=== PATIENT | male | born 1935 | race Caucasian/White ===

== ENCOUNTER 2020-09-18 10:09 | Emergency (ER) | payer MEDICARE, SELFPAY ==
--- NOTE | ~2020-09-18 | XR_ITS ---
EXAMINATION: XR chest 2V DATE: 09/18/2020 11:03 INDICATION: Cough. COVID-19 pneumonia. TECHNIQUE: Frontal and lateral views of the chest were obtained. COMPARISON: Chest CT 01/03/2019 FINDINGS: There is a 5 cm mass in perihilar right lower lobe. There are patchy airspace opacities in the mid and lower lung zones. No pleural effusion or pneumothorax. The heart size is normal. Calcifie d mediastinal lymph nodes are consistent with old granulomatous disease. IMPRESSION: 1. 5 cm mass in perihilar right lower lobe suspicious for primary bronchogenic carcinoma. Chest CT is recommended. 2. Patchy airspace opacities in the mid and lower lung zones, consistent with COVID-19 pneumonia. Reviewed, dictated and finalized at location A. TECHNICIAN IMPRESSION: 1. 5 cm mass in perihilar right lower lobe suspicious for primary bronchogenic carcinoma. Chest CT is recommended. 2. Patchy airspace opacities in the mid and lower lung zones, consistent with C OVID-19 pneumonia.
[2020-09-18 10:34] VITALS: BP 118/102; PULSE 63; RESP 20; TEMP 36.5; O2SAT 94
--- NOTE | 2020-09-18 10:53 | ED.URI ---
HPI - URI/Sore Throat General Chief Complaint: Upper Respiratory Infection Stated Complaint: upper respiratory infection Time Seen by Provider: 09/18/20 10:40 Source: patient and RN notes reviewed Mode of arrival: ambulatory Limitations: no limitations History of Present Illness HPI Narrative: Patient presents today complaining of a 1 week history of productive cough with occasional fever with T-max of 101, decreased appetite with decreased taste. Reports rhinorrhea initially, but this has resolved. Denies shortness of breath, body aches, sore throat, congestion, nausea, vomiting, diarrhea, decreased smell. He has taken allergy medication, Tylenol, and ibuprofen. States ibuprofen helps the fever. States he has also been using a nebulizer machine and inhaler at home, which does help with his symptoms as well. MD elicited complaint: cough Related Data Home Medications Medication Instructions Recorded Confirmed allopurinol 100 mg tablet 100 mg PO DAILY 01/16/20 09/18/20 gabapentin 300 mg capsule 300 mg PO DAILY 01/16/20 09/18/20 pantoprazole 40 mg tablet,delayed 40 mg PO QAM 01/16/20 09/18/20 release prednisolone 5 mg tablet 5 mg PO DAILY 01/16/20 09/18/20 simvastatin 20 mg tablet 20 mg PO DAILY 01/16/20 09/18/20 Allergies Allergy/AdvReac Type Severity Reaction Status Date / Time No Known Allergies Allergy Verified 01/16/20 08:14 Review of Systems Review of Systems: Narrative: CONSTITUTIONAL: Denies body aches, chills, or sweats. + Fever EYES: Denies visual changes, redness, or discharge. ENT: Denies congestion, sore throat, or otalgia. + Rhinorrhea?resolved CARDIOVASCULAR: Denies chest pain, palpitations, or edema. RESPIRATORY: Denies dyspnea. + Cough GASTROINTESTINAL: Denies abdominal pain, nausea, vomiting, or diarrhea. + Decreased appetite, decreased taste GENITOURINARY: Denies dysuria or hematuria. SKIN: Denies rash, itching, or wounds. MUSCULOSKELETAL: Denies back pain, joint pain, or myalgia. NEUROLOGIC: Denies headache, numbness, tingling, or weakness. PSYCH: Denies depression or anxiety. [facility] Past Medical History Medical History (Updated 09/18/20 @ 11:35 by Em Lee, [facility], ) Chronic bronchitis GERD (gastroesophageal reflux disease) Gout High cholesterol Surgical History Surgical History History of bilateral knee replacement 2001 History of neck surgery metal plate in neck 2007 History of surgery on arm Metal plate in arm 1997 Family History Family History Other Family history of arthritis Family history of malignant neoplasm Social History Social History Smoking status: Current every day smoker Gender identity (if verbalized by the patient): Male Comments At time of signature, I have reviewed and agree with nursing past medical, surgical, social and family history unless otherwise noted. Please see nursing chart for further information. There is no relevant family history pertinent to the presenting complaint Exam Narrative: Exam Narrative: GENERAL: Well-appearing, well-nourished, and in no acute distress. HEAD: Normocephalic, atraumatic. EYES: EOMI. No redness or drainage. Conjunctivae normal. ENT: Mucous membranes pink and moist. Nares clear. No rhinorrhea. Throat normal. Uvula midline. Wears bilateral hearing aids NECK: Normal AROM. Supple. No lymphadenopathy. CHEST: No respiratory distress. Crackles in the right lower lobe, otherwise clear HEART: Regular rate and rhythm. No murmur appreciated. Normal peripheral pulses. EXTREMITIES: Normal range of motion. No edema. SKIN: Warm, dry, no rash. Capillary refill normal. Normal skin turgor. NEURO: No focal deficits. Alert and oriented x3. Gait steady. PSYCH: Normal affect. No signs of depression or anxiety. Course Vital
== END 2020-09-18 11:43 | disposition home or self-care (01) ==
PROVIDERS: Emergency Provider Nurse Practitioner; PCP Family Medicine
DX: U07.1 COVID-19 (principal); J12.82 Pneumonia due to coronavirus disease 2019; R91.8 Other nonspecific abnormal finding of lung field; F17.200 Nicotine dependence, unspecified, uncomplicated; Z96.653 Presence of artificial knee joint, bilateral; K21.9 Gastro-esophageal reflux disease without esophagitis; M10.9 Gout, unspecified; E78.00 Pure hypercholesterolemia, unspecified
CPT/HCPCS: 71046; 87426; 87804; 99213; C9803; G0463

== ENCOUNTER 2020-10-06 10:26 | Outpatient (CLI) | payer MEDICARE, SELFPAY ==
--- NOTE | ~2020-10-06 | CT_ITS ---
EXAMINATION: CT diagnostic chest wo con DATE: 10/06/2020 11:03 INDICATION: Right lower lobe mass TECHNIQUE: Computed tomography (CT) of the chest was performed without intravenous contrast. Automate d exposure control and iterative reconstruction technique were employed. Exam dose: 352.49 mGy-cm to baldemar exam DLP. COMPARISON: 09/18/2020 2 view chest 01/03/2019 CT chest FINDINGS: There is prominent right paratracheal, right hilar and mild subcarinal lymphadenopathy. 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 There are bilateral patchy upper lobe infiltrates, primarily on the right and at the lingula. Patchy infiltrate and/atelectasis of the minor fissure, primarily dependent. Patchy bilateral lower lobe inf iltrates and/or atelectasis. Partially calcified substernal left thyroid goiter. Thoracic aortic and great vessel and coronary artery calcifications. Thoracic aortic aneurysm, the ascending aorta measuring up to 4.4 cm diameter, the aortic arch up to 3.3 cm diameter. Heart size within normal range. Trace pericardial fluid. Normal morphology of the adrenal glands. 2.6 cm concentrically calcified gallstone. Bilateral renal cysts. Fusion of T5 and T6 vertebral bodies. Prominent degenerative spurring of the thoracic and lumbar spin e. No suspicious osteolytic or osteoblastic lesions are noted.. Status post lower anterior cervical spine surgical fusion. Prominent degenerative spurring of the thoracic spine. No suspicious osteolytic or osteoblastic lesions are noted. 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 Reviewed, dictated and finalized at location A. 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
== END 2020-10-06 10:27 | disposition home or self-care (01) ==
PROVIDERS: PCP Family Medicine; Visit Provider Family Medicine
DX: D38.1 Neoplasm of uncertain behavior of trachea, bronchus and lung (principal); R91.8 Other nonspecific abnormal finding of lung field; K80.20 Calculus of gallbladder without cholecystitis without obstruction; N28.1 Cyst of kidney, acquired
CPT/HCPCS: 71250

== ENCOUNTER 2020-10-30 08:59 | Outpatient (CLI) | payer MEDICARE, SELFPAY ==
--- NOTE | ~2020-10-30 | PE_ITS ---
EXAMINATION: PET skull to mid thigh DATE: 10/30/2020 11:42 INDICATION: Lung mass. TECHNIQUE: Blood glucose level was 88 mg/dL. 9.857 mCi of 18-fluorodeoxyglucose (18-FDG) was administ ered i.v. Low dose computed tomography (CT) images were acquired from the base of the brain to the pr oximal thighs for attenuation correction and anatomic localization. Positron emission tomography (PET ) images were acquired in the same distribution beginning 59 minutes after injection. Images includin g fused PET/CT images were reconstructed in axial, coronal, and sagittal planes. Automated exposure c ontrol technique was employed. The dose-length product was 1100.36mGy-cm. COMPARISON: Chest CT dated 10/06/2020 FINDINGS: Head/neck: There is symmetric increased activity in the oral cavity, palatine tonsils, parotid glands, submandi bular glands, laryngeal muscles and ocular muscles without CT correlate, likely physiologic. No patho logically enlarged cervical lymphadenopathy or suspicious foci of increased FDG uptake in the visuali zed head or neck. Chest: 5.4 x 3.8 cm perihilar right lower lobe mass with marked FDG uptake with maximal SUV of 21.8. There i s increased FDG uptake at a right hilar lymph node with maximal SUV of 11.3. The lymph node is diffic ult to distinguish from the adjacent vasculature at the high right hilum but based on pattern of FDG activity likely measures 2-3 cm. Finally there is a 5.5 x 4.1 cm FDG avid right paratracheal lymph no de with maximal SUV of 12.9. 19 x 13 mm mildly FDG avid subcarinal lymph node with maximal SUV of 6.0 . Bilateral patchy regions of groundglass opacity scattered throughout both lungs which could represe nt atelectasis, pneumonia, aspiration or pulmonary hemorrhage. Calcified nodule at the lingula consis tent with old granulomatous disease. No pleural effusion. Cardiomegaly. No pericardial effusion. Athe rosclerotic coronary artery calcific lesions and aortic valve calcification. Thoracic aorta is normal in caliber. Abdomen/pelvis/proximal thighs: Physiologic renal accumulation and excretion of FDG activity in the kidneys, bladder and along portio ns of ureters. Bilateral low-attenuation renal cysts the largest on the left measuring up to 3.6 cm. Normal degree and heterogenous pattern of increased uptake throughout the liver without radiologic co rrelate or dominant FDG avid lesion. Partially calcified gallstone within the decompressed gallbladde r. The pancreas, spleen and bilateral adrenal glands are normal. There is mild colonic diverticulosis with a sigmoid predominance and no adjacent inflammatory change to suggest diverticulitis. Mild upta ke scattered throughout the bowels without radiologic correlate, also likely physiologic. Bilateral s mall fat-containing inguinal hernias. No other abnormal foci of increased FDG uptake or pathologicall y enlarged lymphadenopathy in the abdomen, pelvis or proximal thighs. Musculoskeletal: C5-C6 anterior spinal fusion with anterior plate and screw fixation. Severe thoracolumbar spondylosis with bridging osteophytes at multiple levels consistent with diffuse idiopathic skeletal hyperostosi s (DISH). Mild focal kyphosis centered at T5 and T6 which are fused anteriorly which could be either developmental or sequela of an old compression fracture. 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 No suspicious lytic or blastic bone lesions. IMPRESSION: 1. Markedly FDG avid 5.4 x 3.8 cm right lower lobe mass consistent with primary bronchogenic carcinom a. Consider percutaneous CT-guided biopsy for definitive determination. 2. Enlarged and FDG avid right hilar, subcarinal and most prominently right paratracheal lymph nodes consistent with metastatic disease. No other evident metastatic disease. 3.
[2020-10-30 09:39] LABS: Glucose Point of Care 88 (65-105)
== END 2020-10-30 09:00 | disposition home or self-care (01) ==
PROVIDERS: PCP Family Medicine
DX: R91.8 Other nonspecific abnormal finding of lung field (principal); R59.0 Localized enlarged lymph nodes
CPT/HCPCS: 78815; 82948; A9552

== ENCOUNTER 2021-02-27 07:05 | Outpatient (CLI) | payer MEDICARE, SELFPAY ==
--- NOTE | ~2021-02-27 | CT_ITS ---
EXAMINATION: CT diagnostic chest w con DATE: 02/27/2021 07:54 INDICATION: Lung cancer TECHNIQUE: Computed tomography (CT) of the chest was performed with 75 cc Omnipaque 350 intravenous c ontrast. The dose-length product was 466.29 mGy-cm. Automated exposure control and iterative reconstr uction technique were employed. COMPARISON: Pet/CT dated 10/30/[address] dated 10/06/2020 FINDINGS: Significantly decreased size of right lower lobe mass measuring 2.4 x 2.1 cm compared with 3.5 x 4.7 cm on prior examination. Significant improvement of mediastinal and right hilar lymphadenop athy. For instance right paratracheal lymph node measures 3.3 x 3 cm compared with 5.3 x 4 cm on prio r examination. Heart size is normal. There is patchy multifocal consolidation in the right upper, mid dle and lower lobes as well as the left lower lobe, suspicious for pneumonia. There are several nodul ar/masslike foci of consolidation. Metastatic disease less favored, although not excluded. There is a therosclerosis of the aorta and coronary arteries. There is fusion of 2 upper thoracic vertebra. Ther e is diffuse idiopathic skeletal hyperostosis (DISH) of the thoracic spine. No focal lytic or blastic lesions are identified. There is fatty infiltration of the liver. There are gallstones. There is kaleb ateral renal atrophy with bilateral renal cysts. IMPRESSION: 1. Significantly improved size of right lower lobe mass as well as mediastinal and right hilar lympha denopathy, consistent with interval response to therapy. 2: Persistent patchy airspace consolidation bilaterally, slightly improved in the right upper lobe an d slightly increased in the left lower lobe, most likely infectious/inflammatory although metastatic disease not excluded. Reviewed, dictated and finalized at location B. IMPRESSION: 1. Significantly improved size of right lower lobe mass as well as mediastinal and right hilar lymphadenopathy, consistent with interval response to therapy. 2: Persistent patchy airspace consolidation bilaterally, slightly improved in t he right upper lobe and slightly increased in the left lower lobe, most likely infectious/inflammatory although metastatic disease not excluded.
[2021-02-27 07:39] LABS: Estimated Glomerular Filt Rate 48
== END 2021-02-27 07:06 | disposition home or self-care (01) ==
LOC: ANHIMG 07:13
PROVIDERS: PCP Family Medicine; Visit Provider Internal Medicine Medical Oncology
DX: C34.31 Malignant neoplasm of lower lobe, right bronchus or lung (principal); R91.8 Other nonspecific abnormal finding of lung field
CPT/HCPCS: 71260; Q9967

== ENCOUNTER 2021-05-25 08:24 | Outpatient (CLI) | payer MEDICARE, SELFPAY ==
--- NOTE | ~2021-05-25 | CT_ITS ---
EXAMINATION: CT diagnostic chest w con EXAM DATE: 05/25/2021 09:11 INDICATION: Right lower lobe lung cancer. TECHNIQUE: Spiral CT of the chest following intravenous injection of 75 mL Omnipaque 350. Axial, cor onal and sagittal images of the chest were reviewed. Coronal maximum intensity pixel images of chest reviewed. The dose-length product (DLP) for this examination was 383.06 mGy-cm. The exposure was t ailored according to patient size (auto mA exposure control), and iterative reconstruction (ASIR) was used as additional dose reduction technique. Comparison is made to prior examination from 02/27/2021. FINDINGS: Small to moderate right pleural effusion, small pericardial effusion. There is right lowe r lobe superior segmental perihilar infiltrative mass occluding some segmental bronchi of the right l ower lobe and infiltrating the hilum. Size of this has increased, now measures about 4 cm versus abou t 2 cm on prior study. There is associated right hilar lymphadenopathy, and also right lower paratrac heal lymphadenopathy, with lymph node in this location measuring 2.8 x 2.0 cm. There is no pneumotho rax. Heart normal in size. There is moderate coronary arterial calcification, arterial sclerosis. There is significant bilateral renal cortical thinning. There is cholelithiasis. There is thoracic spondylosis without osteoblastic or osteolytic lesions identified. Left thyroid lobe nodule unchange d. IMPRESSION: 1. Increase in size of right lower lobe perihilar infiltrative malignancy. 2. Right hilar, precarinal lymphadenopathy unchanged. 3. Development of small to moderate right pleural effusion. Reviewed, dictated and finalized at location B.
[2021-05-25 09:02] LABS: Estimated Glomerular Filt Rate 53
== END 2021-05-25 08:25 | disposition home or self-care (01) ==
LOC: ANHIMG 08:28
PROVIDERS: PCP Family Medicine; Visit Provider Internal Medicine Medical Oncology
DX: C34.31 Malignant neoplasm of lower lobe, right bronchus or lung (principal); J90 Pleural effusion, not elsewhere classified
CPT/HCPCS: 71260; Q9967

== ENCOUNTER 2022-03-01 08:24 | Inpatient (IN) | payer MEDICARE, SELFPAY ==
[2022-03-01] VITALS (34 sets, daily range): BP systolic 109–158; BP diastolic 77–101; PULSE 74–115; RESP 13–42; TEMP 36.1–36.6; O2SAT 93–98; BMI 24.3; BMI 25.6
--- NOTE | ~2022-03-01 | XR_ITS ---
EXAMINATION: [id number] Exam Date/Time: 03/03/2022 12:50 CDT HISTORY: pleural effusion Comparison: 03/01/2022. RESULT: Lines, tubes, and devices: None. Lungs and pleura: Unchanged pulmonary opacities. Similar right angle blunting and right pleural flui d. No pneumothorax. No new focal consolidation. Cardiomediastinal silhouette: Stable cardiomediastinal silhouette. Other: No acute osseous or upper abdominal finding. IMPRESSION: Unchanged pulmonary opacities. No radiographic evidence of post procedure complication. Reviewed, dictated and finalized at location K. IMPRESSION: Unchanged pulmonary opacities. No radiographic evidence of post procedure compl ication.
--- NOTE | ~2022-03-01 | XR_ITS ---
EXAMINATION: XR chest 2V DATE: 03/01/2022 08:47 INDICATION: Shortness of breath, history of lung cancer TECHNIQUE: AP and lateral views of the chest are obtained. COMPARISON: 09/18/2020 FINDINGS: There is volume loss in the right lung. A right perihilar mass is again seen. There are pat paris opacities throughout the right lung. Minimal opacities are seen in the left lung base. The heart size is normal. There is elevation of the right hemidiaphragm. There is a small right pleural effusio n. No pneumothorax is identified. 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 There are changes of fusion procedure in th e anterior cervical spine. There are bridging osteophytes at multiple levels in the spine, consistent with diffuse idiopathic skeletal hyperostosis (DISH). IMPRESSION: 1. Right perihilar mass and volume loss in the right hemithorax, consistent with primary bronchogenic carcinoma. 2. Patchy airspace opacities throughout the right lung, likely pneumonia. Reviewed, dictated and finalized at location A. IMPRESSION: 1. Right perihilar mass and volume loss in the right hemithorax, consistent wit h primary bronchogenic carcinoma. 2. Patchy airspace opacities throughout the right lung, likely pneumonia.
--- NOTE | ~2022-03-01 | US_ITS ---
EXAMINATION: US thoracentesis DATE: 03/03/2022 13:23 INDICATION: pleural effusion TECHNIQUE: The procedure and its risks and benefits were discussed with the patient. Potential risks discussed included bleeding, infection, and pneumothorax. The patient understood the risks and agreed to proceed. The skin was prepped and draped in sterile fashion. 1% lidocaine was used for local anes thesia. Under ultrasound guidance, a 5 Fr catheter with trochar was advanced into the large right ple ural effusion. Fluid was aspirated. The catheter was removed, and a dressing was applied. There were no immediate complications. FINDINGS: Ultrasound images demonstrate a large right pleural effusion and the catheter within the fluid. IMPRESSION: 1. Successful ultrasound-guided thoracentesis yielding 1000 mL of clear yellow fluid. Reviewed, dictated and finalized at location A.
--- NOTE | ~2022-03-01 | US_ITS ---
EXAMINATION: US venous doppler [facility] DATE: 03/02/2022 11:58 INDICATION: Pulmonary embolism. TECHNIQUE: Grayscale ultrasound images without and with compression and Doppler ultrasound images of the bilateral lower extremity veins were obtained. COMPARISON: None. FINDINGS: The visualized portions of right common femoral vein, profunda (deep) femoral vein, femoral vein, pop liteal vein, posterior tibial veins, peroneal veins, gastrocnemius vein and greater saphenous vein ou tflow are patent. The visualized portions of left common femoral vein, profunda femoral vein, femoral vein, popliteal v ein, posterior tibial veins, peroneal veins, gastrocnemius vein and greater saphenous vein outflow ar e patent. IMPRESSION: 1. No deep venous thrombosis in either lower limb. Reviewed, dictated and finalized at location A.
--- NOTE | ~2022-03-01 | XR_ITS ---
MODIFIED ESOPHAGRAM HISTORY: Aspiration pneumonia TECHNIQUE: Modified barium esophagram was performed on 03/04/2022. I administered fluoroscopy and perf ormed the exam with speech pathologist. Patient was seated for lateral fluoroscopic imaging for ashlyn stion of thin liquids, pudding, solids and quantified amounts, followed by thin liquids in uncontroll ed amounts. This was recorded on tape. A single fluoroscopic spot image was also recorded. The DAP fo r this procedure was 1.375 Gycm2. The amount of fluoroscopy time used during this procedure was 2.1 m inutes. FINDINGS: Oral stage: Adequate function. Pharyngeal stage: Reduced laryngeal elevation and vallecular residue. Small amount of laryngeal penet ration with thin liquids and possible trace aspiration. Cervical/esophageal stage: Adequate function. IMPRESSION: Mild pharyngeal dysphagia with small amount of laryngeal penetration and possible trace a spiration. Please correlate with speech pathologist findings and specific feeding recommendations. Reviewed, dictated and finalized at location A. IMPRESSION: Mild pharyngeal dysphagia with small amount of laryngeal penetratio n and possible trace aspiration. Please correlate with speech pathologist find ings and specific feeding recommendations.
--- NOTE | ~2022-03-01 | CT_ITS ---
EXAMINATION: CTA chest PE protocol DATE: 03/01/2022 16:28 INDICATION: tachypnec, tachycardic and short of breath TECHNIQUE: Computed tomography angiography (CTA) of the chest was performed with 100 mL Omnipaque-350 intravenous contrast timed to evaluate the pulmonary arteries. Coronal maximum intensity projection 3D-reconstructions were created by the technologist. The dose-length product (DLP) was 713.21 mGy-cm. Automated exposure control and iterative reconstruction technique were employed. COMPARISON: CT chest 05/25/2021. FINDINGS: Study quality: Adequate. Pulmonary arteries: Nonfilling of multiple subsegmental branches in the left lower lobe superior and basal segments. Thoracic aorta: Ectasia with arch calcifications. Lung parenchyma and airways: Diffuse bilateral tree-in-bud opacities, most pronounced in the right aiyana ng, with scattered subsegmental areas of consolidation, and consolidation with volume loss and bronch iectasis in right lower lobe segments. The right suprahilar mass is smaller in today's examination, w ith persistent narrowing of the traversing airways and pulmonary vessels. Fluid in multiple bronchi. Thoracic inlet, axillae and chest wall: Unremarkable. Mediastinum: Lymphadenopathy. Dilation of central pulmonary arteries. Heart and pericardium: Cardiomegaly. Right atrial enlargement. Heart is shifted to the left due to co nsiderable volume loss in the right lung. The RV/LV ratio is less than 1. Coronary artery calcifications: Severe. Pleura: Moderate volume and possibly loculated right pleural effusion. Upper abdomen: Contrast reflux into hepatic veins. Bones: No acute osseous finding. IMPRESSION: Multiple subsegmental occlusive emboli in the left lower lobe, overall low volume of clot. There is e vidence of right heart failure although the RV/LV ratio remains less than one. Pulmonary opacities ma y represent bronchiolitis, likely with a component of aspiration in this patient, can also be seen wi th atypical infection, asthma, and small airways disease. Right hilar lung mass, smaller in today's e xamination, with mediastinal lymphadenopathy. Possibly loculated moderate right pleural effusion. Pul monary arterial hypertension. Results reported telephonically to the patient's nurse Jolly Allen by Dr. Frankel at 4:58 PM on 03/01/2002. Reviewed, dictated and finalized at location K. IMPRESSION: Multiple subsegmental occlusive emboli in the left lower lobe, overall low volu me of clot. There is evidence of right heart failure although the RV/LV ratio r emains less than one. Pulmonary opacities may represent bronchiolitis, likely w ith a component of aspiration in this patient, can also be seen with atypical i nfection, asthma, and small airways disease. Right hilar lung mass, smaller in today's examination, with mediastinal lymphadenopathy. Possibly loculated moder ate right pleural effusion. Pulmonary arterial hypertension. Results reported telephonically to the patient's nurse Jolly Allen by Dr. Frankel at 4:58 PM on 03/01/2002.
--- NOTE | 2022-03-01 08:31 | ECG_ITS ---
Measurements Intervals [place] Rate: 105 P: [place]: 0 QRS: -11 QRSD: 81 T: -60 QT: 297 QTc: 394 Interpretive Statements ATRIAL FIBRILLATION WITH RAPID VENTRICULAR RESPONSE LOW QRS VOLTAGE IN EXTREMITY LEADS [QRS DEFLECTION < 0.5 mV IN LIMB LEADS] ABNORMAL RHYTHM ECG NO PREVIOUS ECG AVAILABLE FOR COMPARISON Electronically Signed On 03-01-2022 15:47:05 CDT by Romario Cheng M.D.
[2022-03-01 09:06] LABS: Basophils Percent Auto 0.3 % (0.2-1.2); Eosinophils Absolute Auto 0.1 K/mm3 (0-0.3); Eosinophils Percent Auto 0.6 % (0-4.4); Hemoglobin 12.9 g/dL (14.0-18.0); Immature Granulocyte Percent A 0.9 % (0-0.5); Lymphocytes Absolute Auto 0.67 K/mm3 (0.9-3.2); Lymphocytes Percent Auto 6.2 % (18.3-44.2); Mean Corpuscular HGB Conc 32.3 g/dl (32-36); Mean Corpuscular Hemoglobin 32.6 pg (26-34); Mean Platelet Volume 9.1 fl (7.4-10.4); Monocytes Absolute Auto 1.1 K/mm3 (0.1-0.6); Monocytes Percent Auto 9.9 % (2.6-8.5); Neutrophils Absolute Auto 8.9 K/mm3 (1.3-6.7); Neutrophils Percent Auto 82.1 % (45.5-73.1); Platelet Count Result 352 k/mm3 (150-375); Red Blood Count 3.96 M/mm3 (4.6-6.20); Red Cell Distribution Width 12.5 % (11.5-14.5); White Blood Count 10.8 K/mm3 (4.5-10.0)
[2022-03-01 09:16] LABS: Alanine Aminotransferase 27 U/L (6-50); Albumin Level 3.5 g/dL (3.5-5.1); Alkaline Phosphatase 156 U/L (38-126); Anion Gap 7 mmol/L (8-16); Aspartate Amino Transferase 34 U/L (17-59); Bilirubin,Total 1.1 mg/dL (0.2-1.3); Blood Urea Nitrogen 19 mg/dL (9-20); Carbon Dioxide 28 mmol/L (22-30); Chloride 96 mmol/L (98-107); Estimated CRCL calculation 46 ml/min; Estimated Glomerular Filt Rate > 60; Glucose 112 mg/dL (65-110); Potassium 3.9 mmol/L (3.4-5.0); Sodium 131 mmol/L (137-145)
[2022-03-01 09:17] LABS: INR 1.1; Prothrombin Time 13.9 Seconds (11.1-14.7)
[2022-03-01 09:18] LABS: Partial Thromboplastin Time 31.3 SECONDS (22.3-36.8)
[2022-03-01 09:26] LABS: NT Pro B Type Natriuretic Pept 6260 pg/mL (5-100)
[2022-03-01 10:42] LABS: SARS-CoV-2 RNA PCR Negative
[2022-03-01] MEDS: FUROSEMIDE INJ 40 MG/4 ML VIAL IV PUSH (10:53)
--- NOTE | 2022-03-01 11:24 | ED.SOB ---
HPI - SOB/Dyspnea General Chief Complaint: Shortness of Breath/Dyspnea Stated Complaint: difficulty breathing Time Seen by Provider: 03/01/22 08:25 History of Present Illness HPI Narrative: Patient is a 86-year-old male who presents ER with shortness of breath. Worsening over the last week. Associate with orthopnea. Also has exertional dyspnea. No fevers or chills. Cough is nonproductive. Has history of lung cancer which was treated at [facility] in [place], [place]. Patient reports he had radiation and chemotherapy. No chest pain or chest pressure. No known sick contacts. Related Data Home Medications Medication Instructions Recorded Confirmed ipratropium 0.5 mg-albuterol 3 mg 3 ml inhalation QID 02/02/22 03/01/22 (2.5 mg base)/3 mL nebulization soln Allergies Allergy/AdvReac Type Severity Reaction Status Date / Time No Known Allergies Allergy Verified 02/02/22 13:29 Review of Systems Review of Systems: All systems reviewed & are unremarkable except as noted in HPI and below Constitutional: Constitutional: Denies chills and Denies fever(s) Cardiovascular: Cardiovascular: Denies chest pain, Denies rapid heart rate and Denies radiating jaw, neck or arm pain Respiratory: Respiratory: Reports chest congestion, Reports cough and Reports dyspnea Gastrointestinal: Gastrointestinal: Denies abdominal pain, Denies nausea and Denies vomiting Neurologic: Denies headache(s), Denies focal weakness and Denies numbness PMFSH Past Medical History Medical History Chronic bronchitis COPD exacerbation GERD (gastroesophageal reflux disease) Gout High cholesterol Lung cancer Surgical History Surgical History History of bilateral knee replacement 2001 History of neck surgery metal plate in neck 2007 History of surgery on arm Metal plate in arm 1997 Family History Family History Other Family history of arthritis Family history of malignant neoplasm Social History Social History (Updated 03/01/22 @ 14:43 by MATTEO Delaney) Social History: Patient lives by himself. Patient wishes that his daughter Brice and son Darien to be his surrogates. Patient has 2 girls and 2 boys 1 of his sons with colon cancer. Patient was a heavy smoker for many years he isn't have any pets any wishes to be a DNR at this time Smoking packs per day: 2 Smoking cigarettes per day: 40.0 Years smoked: 50 Smoking pack-years: 100.00 Smoking status: Former smoker Tobacco type: cigarettes Alcohol intake: former Alcohol use details: Does not drink anymore, Doesn't even taste good Substance use: never Living arrangements: alone Occupation/Education: retired Gender identity (if verbalized by the patient): Male Sexual Orientation (if Verbalized by the Patient): Straight or Heterosexual Spiritual care concerns: No Agree to blood products: Yes Exam Narrative: GENERAL: Chronically ill-appearing, well-nourished, and in no acute distress. HEAD: Normocephalic, atraumatic. EYES: PERRL and EOMI. ENT: Mucous membranes moist. CHEST: Coarse rales bilaterally with increased respiratory rate. HEART: Irregular regular rate and rhythm that is tachycardic. Normal peripheral pulses. ABDOMEN: Soft, nontender, nondistended. EXTREMITIES: Normal range of motion. +1 edema. SKIN: Warm, dry, no rash. NEURO: Alert and oriented x3. PSYCH: Normal mood and affect. Course Course Emergency Course: Patient informed of results. Will treat for pneumonia. Patient feels like his lung mass is no longer present on previous imaging but we do not have anything to compare to. Patient saw Dr. Marino in [place] for his cancer care. Vital Signs Vital signs: Vital Signs Pulse Rate 106 H 03/01/22 08:28 Respiratory Rate 25 H 03/01/22 08:2
--- NOTE | 2022-03-01 14:32 | PM.IMHP ---
H&P: HPI History of Present Illness Date/Time: 03/01/22 14:32 Chief Complaint: Shortness of breath x2 days Narrative: Patient is a 86-year-old male with past medical history of COPD, lung cancer, GERD, gout, hyperlipidemia who presented the ED with shortness of breath. Patient stated that it got really bad last night was worse this morning. He did 3 breathing treatments yesterday with no relief and 1 this a.m. with no relief as well. He stated that he has been very miserable and unable to breathe. Patient stated that he was recently at the physician's office and they told him to stop taking the water pill because he was taken off too much water. He was also instructed to stop a few of his other medications. Patient also stated that he has had a cough which is producing a yellow and green thick sputum. He did state that he did not think his cough was worse or was any different. He denies any increasing wheezes. Patient did state that he is having issues with urinating. He stated that he does continuously dribbles and that it rivas when he tries to urinate. He stated that just happened. He also stated that he was having abdominal pain across the middle of his abdomen especially when he is short of breath. He has experienced a decrease in appetite. He also stated that he does have peripheral neuropathy in his feet and toes are always cold however he does not feel pain any more. He denies any chest pain, nausea, vomiting, diarrhea, constipation. His daughter did state that he has been very weak and has been able to get around as much as he usually does. He also states that his appetite is been lessened and that he has lost a lot of weight since he has been ill. Patient denies any headaches, visual stated, dizziness, syncope or falls. Patient is being admitted to us add under observation. Review of Systems Review of Systems: All systems reviewed & are unremarkable except as noted in HPI and below PMFSH Past Medical History Medical History Chronic bronchitis COPD exacerbation GERD (gastroesophageal reflux disease) Gout High cholesterol Lung cancer Surgical History Surgical History History of bilateral knee replacement 2001 History of neck surgery metal plate in neck 2008 History of surgery on arm Metal plate in arm 1998 Family History Family History Other Family history of arthritis Family history of malignant neoplasm Social History Social History (Updated 03/01/22 @ 14:43 by MATTEO Delaney) Social History: Patient lives by himself. Patient wishes that his daughter Brice and son Darien to be his surrogates. Patient has 2 girls and 2 boys 1 of his sons with colon cancer. Patient was a heavy smoker for many years he isn't have any pets any wishes to be a DNR at this time Smoking packs per day: 2 Smoking cigarettes per day: 40.0 Years smoked: 50 Smoking pack-years: 100.00 Smoking status: Former smoker Tobacco type: cigarettes Alcohol intake: former Alcohol use details: Does not drink anymore, Doesn't even taste good Substance use: never Living arrangements: alone Occupation/Education: retired Gender identity (if verbalized by the patient): Male Sexual Orientation (if Verbalized by the Patient): Straight or Heterosexual Spiritual care concerns: No Agree to blood products: Yes Meds Home Medications and Allergies Home Medications Medication Instructions Recorded Confirmed Type allopurinol 100 mg tablet 100 mg PO DAILY #90 tabs 02/02/22 03/01/22 Rx ipratropium 0.5 mg-albuterol 3 mg 3 ml inhalation QID 02/02/22 03/01/22 History (2.5 mg base)/3 mL nebulization soln pantoprazole 40 mg tablet,delayed 40 mg PO QAM #90 tabs 02/02/22 03/01/22 Rx release Allergies Allergy/A
[2022-03-01 15:47] LABS: Alveolar/Arterial O2 Gradient 31.5 mmHg; Base Excess ABG 3.3 mEq/l (+/-2.0); Carboxyhemoglobin 0.4 % THb (0-2.0); Device ROOM AIR; Fractional Inspired Oxygen 21 %; Methemoglobin ABG 0.4 %THb (0-1.5); Modified Allen's Test Pass; Oxygen Content ABG 18.2 %vol (16.0-22.0); Oxygen Saturation ABG 95.6 % (95.0-100.0); Oxyhemoglobin 93.9 % THb (90.0-100.0); PCO2 ABG 37.8 mmHg (35.0-45.0); PO2 FiO2 Ratio Arterial Blood 3.48 %; Reduced Hemoglobin 5.3 %THb (0-5.0); Site Drawn LEFT RADIAL; Total Hemoglobin 13.8 g/dL (12.0-18.0); pH ABG 7.471 (7.350-7.450)
[2022-03-01 15:51] LABS: D Dimer 6.78 ug/mL (<0.48)
[2022-03-01 16:21] LABS: Basophils Percent Auto 0.3 % (0.2-1.2); Eosinophils Percent Auto 0.2 % (0-4.4); Hematocrit 39.7 % (42.0-52.0); Immature Granulocyte Absolute 0.11 K/mm3 (0.00-0.031); Immature Granulocyte Percent A 0.9 % (0-0.5); Lymphocytes Absolute Auto 0.59 K/mm3 (0.9-3.2); Lymphocytes Percent Auto 4.8 % (18.3-44.2); Mean Corpuscular HGB Conc 32.7 g/dl (32-36); Mean Corpuscular Hemoglobin 32.9 pg (26-34); Mean Corpuscular Volume 100.5 fl (80-100); Mean Platelet Volume 8.7 fl (7.4-10.4); Monocytes Absolute Auto 1.4 K/mm3 (0.1-0.6); Monocytes Percent Auto 11.4 % (2.6-8.5); Neutrophils Absolute Auto 10.1 K/mm3 (1.3-6.7); Neutrophils Percent Auto 82.4 % (45.5-73.1); Platelet Count Result 300 k/mm3 (150-375); Red Blood Count 3.95 M/mm3 (4.6-6.20); Red Cell Distribution Width 12.5 % (11.5-14.5); White Blood Count 12.3 K/mm3 (4.5-10.0)
[2022-03-01 16:22] LABS: Creatinine Urine 11.5 mg/dL; Urea Random Urine 108 MG/DL
[2022-03-01 16:23] LABS: Sodium Urine Random 122 meq/L
[2022-03-01 16:31] LABS: Alanine Aminotransferase 26 U/L (6-50); Albumin Level 3.7 g/dL (3.5-5.1); Alkaline Phosphatase 150 U/L (38-126); Anion Gap 7 mmol/L (8-16); Aspartate Amino Transferase 29 U/L (17-59); Bilirubin,Total 1.2 mg/dL (0.2-1.3); Blood Urea Nitrogen 17 mg/dL (9-20); Carbon Dioxide 31 mmol/L (22-30); Chloride 92 mmol/L (98-107); Estimated CRCL calculation 51 ml/min; Estimated Glomerular Filt Rate > 60; Glucose 139 mg/dL (65-110); Magnesium 1.3 mg/dL (1.6-2.3); Potassium 3.5 mmol/L (3.4-5.0); Sodium 130 mmol/L (137-145)
[2022-03-01] MEDS: HEPARIN SODIUM 5,000 UNITS/ML VIAL 5500 UNITS IV PUSH (19:26)
[2022-03-01] MEDS: HEPARIN SOD/D5W 100 UNITS/ML 25,000 UNITS/250 ML BAG 13 UNITS IV CONT (19:27)
[2022-03-01] MEDS: HYDROcodone/acetaminophen (*CRX) 5-325 MG TABLET 1 TAB PO (20:52)
[2022-03-01 21:19] LABS: Basophils Percent Auto 0.3 % (0.2-1.2); Hematocrit 41.9 % (42.0-52.0); Hemoglobin 13.6 g/dL (14.0-18.0); Immature Granulocyte Absolute 0.11 K/mm3 (0.00-0.031); Immature Granulocyte Percent A 0.8 % (0-0.5); Lymphocytes Absolute Auto 0.61 K/mm3 (0.9-3.2); Lymphocytes Percent Auto 4.4 % (18.3-44.2); Mean Corpuscular HGB Conc 32.5 g/dl (32-36); Mean Corpuscular Hemoglobin 32.3 pg (26-34); Mean Corpuscular Volume 99.5 fl (80-100); Mean Platelet Volume 8.8 fl (7.4-10.4); Monocytes Absolute Auto 1.3 K/mm3 (0.1-0.6); Monocytes Percent Auto 9.1 % (2.6-8.5); Neutrophils Absolute Auto 11.8 K/mm3 (1.3-6.7); Neutrophils Percent Auto 85.4 % (45.5-73.1); Platelet Count Result 320 k/mm3 (150-375); Red Blood Count 4.21 M/mm3 (4.6-6.20); Red Cell Distribution Width 12.6 % (11.5-14.5); White Blood Count 13.8 K/mm3 (4.5-10.0)
[2022-03-01 21:40] LABS: INR 1.1; Prothrombin Time 13.3 Seconds (11.1-14.7)
[2022-03-01] MEDS: IPRATROPIUM BR 0.02% INH SOLN 0.5 MG/2.5 ML VIAL INHALATION (21:43)
[2022-03-01] MEDS: ALBUTEROL SULFATE NEB 2.5 MG/3 ML INH INHALATION (21:43)
[2022-03-01 21:48] LABS: Troponin I 0.099 ng/mL (0.000-0.034)
[2022-03-02] VITALS (10 sets, daily range): BP systolic 95–134; BP diastolic 74–86; PULSE 89–103; RESP 16–18; TEMP 35.8–36.3; O2SAT 92–98; BMI 25.6
--- NOTE | 2022-03-02 | ECHO_ITS ---
Patient Info Name: Hugo Ferrell Age: 86 years : 1935 Gender: Male Ht: 65 in Wt: 154 lbs BSA: 1.80 m2 HR: 84 bpm BP: 134 / 86 mmHg Technical Quality: Poor Exam Date: 03/02/2022 9:38 AM Exam Location: [facility] Patient Status: Inpatient Admit Date: 03/02/2022 Staff Ordering Physician: Lina Estrada APRN [employer] Installer: Christie Saldivar RDCS Attending Provider: Eri Carbone DO Referring Physician: Sean MATA; Exam Type: CA echo dop color flow w con Study Info Indications I26.09 - Other pulmonary embolism with acute cor pulmonale Complete two-dimensional, color flow and Doppler transthoracic echocardiogram is performed with contrast to opacify the left ventricle and to improve the deliniation of the left ventricle endocardial borders. Contrast/Agitated Saline Contrast/Ag. Saline: Definity Amount: --- ml Summary 1. Technically suboptimal study due to poor sonographic images. 2. Definity contrast administered improved wall motion interpretation. 3. Left ventricular chamber dimension is normal. 4. Left ventricular systolic function is normal, estimated at 60-65%. 5. There is mildly increased left ventricular wall thickness. 6. The left ventricular diastolic function is normal. 7. E/e' 8 is minimally elevated. 8. Right ventricular chamber dimension is moderately enlarged. 9. Right ventricular systolic function is reduced and with abnormal TAPSE 1.2 cm. 10. The aortic valve is not well visualized. Cannot determine number of aortic valve leaflets. 11. There is no aortic valve stenosis based on a peak velocity of 179.81 cm/s, mean gradient of 5 mmHg, and aortic valve area of 2.16 cm2. 12. There is severe aortic valve sclerosis. Left Ventricle E/e' 8 is minimally elevated. Definity contrast administered improved wall motion interpretation. Technically suboptimal study due to poor sonographic images. Left ventricular chamber dimension is normal. Left ventricular systolic function is normal, estimated at 60-65%. There is mildly increased left ventricular wall thickness. The left ventricular diastolic function is normal. Right Ventricle Right ventricular systolic function is reduced and with abnormal TAPSE 1.2 cm. Right ventricular chamber dimension is moderately enlarged. Left Atria Left atrial chamber dimension is normal. Right Atria Right atrial chamber dimension is not well visualized. Aortic Valve The aortic valve is not well visualized. Cannot determine number of aortic valve leaflets. There is no aortic valve stenosis based on a peak velocity of 179.81 cm/s, mean gradient of 5 mmHg, and aortic valve area of 2.16 cm2. There is severe aortic valve sclerosis. There is no aortic valve regurgitation. Pulmonic Valve The pulmonic valve is not well visualized. Mitral Valve There is no mitral valve stenosis. There is no mitral valve regurgitation. Tricuspid Valve The tricuspid valve leaflets are not well visualized. There is no tricuspid valve regurgitation. Pericardium/Pleural There is no pericardial effusion. Inferior Vena Cava Normal inferior vena cava with >50% collapse upon inspiration consistent with normal right atrial pressure, 5 mmHg. Aorta The aortic root size at the sinus of Valsalva is not well visualized. Left Ventricular Outflow Tract Name Value No
[2022-03-02] MEDS: HYDROcodone/acetaminophen (*CRX) 5-325 MG TABLET 1 TAB PO (01:09)
[2022-03-02 01:42] LABS: Partial Thromboplastin Time 177.5 SECONDS (22.3-36.8)
[2022-03-02 01:48] LABS: Troponin I 0.101 ng/mL (0.000-0.034)
[2022-03-02] MEDS: IPRATROPIUM BR 0.02% INH SOLN 0.5 MG/2.5 ML VIAL INHALATION ×3 (08:01→21:12)
[2022-03-02] MEDS: ALBUTEROL SULFATE NEB 2.5 MG/3 ML INH INHALATION ×3 (08:01→21:13)
[2022-03-02 08:17] LABS: Basophils Percent Auto 0.2 % (0.2-1.2); Eosinophils Percent Auto 0.2 % (0-4.4); Hematocrit 35.4 % (42.0-52.0); Hemoglobin 11.7 g/dL (14.0-18.0); Immature Granulocyte Absolute 0.07 K/mm3 (0.00-0.031); Immature Granulocyte Percent A 0.6 % (0-0.5); Lymphocytes Absolute Auto 0.64 K/mm3 (0.9-3.2); Lymphocytes Percent Auto 5.9 % (18.3-44.2); Mean Corpuscular HGB Conc 33.1 g/dl (32-36); Mean Corpuscular Hemoglobin 32.8 pg (26-34); Mean Corpuscular Volume 99.2 fl (80-100); Mean Platelet Volume 9.1 fl (7.4-10.4); Monocytes Absolute Auto 1.2 K/mm3 (0.1-0.6); Neutrophils Absolute Auto 8.9 K/mm3 (1.3-6.7); Neutrophils Percent Auto 82.1 % (45.5-73.1); Platelet Count Result 296 k/mm3 (150-375); Red Blood Count 3.57 M/mm3 (4.6-6.20); Red Cell Distribution Width 12.4 % (11.5-14.5); White Blood Count 10.9 K/mm3 (4.5-10.0)
[2022-03-02 08:39] LABS: Partial Thromboplastin Time 60.7 SECONDS (22.3-36.8)
[2022-03-02 08:40] LABS: Alanine Aminotransferase 21 U/L (6-50); Albumin Level 3.1 g/dL (3.5-5.1); Alkaline Phosphatase 128 U/L (38-126); Anion Gap 5 mmol/L (8-16); Aspartate Amino Transferase 32 U/L (17-59); Bilirubin,Total 1.1 mg/dL (0.2-1.3); Blood Urea Nitrogen 17 mg/dL (9-20); Calcium 8.5 mg/dL (8.4-10.2); Carbon Dioxide 29 mmol/L (22-30); Chloride 92 mmol/L (98-107); Estimated CRCL calculation 58 ml/min; Estimated Glomerular Filt Rate > 60; Glucose 97 mg/dL (65-110); Potassium 3.6 mmol/L (3.4-5.0); Sodium 126 mmol/L (137-145)
--- NOTE | 2022-03-02 09:15 | PM.IMPN ---
Progress Note: A&P Assessment and Plan (1) Pneumonia: Code(s): J18.9 - Pneumonia, unspecified organism Status: Acute Assessment and Plan: Chest xray shows patchy opacities throughout the right lung likely PNA Continue Azithromycin and ceftriaxone day 2 WBC slightly elevated at 10.9 Sputum culture ordered Blood cultures pending Consider some steroid as this could be combined with COPD Continue home neb treatments repeat chest xray in 2 days CTA of the chest shows opacities and possible aspiration ST ordered for a swallow study (2) Pulmonary embolism: Code(s): I26.99 - Other pulmonary embolism without acute cor pulmonale Status: Acute Assessment and Plan: PE was noted to be on the left side Heparin is started Trend respiratory status Will need to transition to oral anticoagulants at discharge (3) Pleural effusion: Code(s): J90 - Pleural effusion, not elsewhere classified Status: Acute Assessment and Plan: CTA showed right pleural effusion possibly loculated Thoracentesis has been ordered Pulmonology has been referred to and agrees with current plan Diagnostic studies pending Could be secondary to infection or malignancy Continue to follow (4) Hyponatremia: Code(s): E87.1 - Hypo-osmolality and hyponatremia Status: Acute Assessment and Plan: Slight hyponatremia noted at 126 Did get that one dose of Lasix which appears to have been the cause of the low sodium Urine sodium was 122 Continue to trend sodium IVF can be stopped Consider nephrology if no improvment (5) CHF (congestive heart failure): Code(s): I50.9 - Heart failure, unspecified Status: Acute Assessment and Plan: BNP elevated at 6260 One dose of lasix given in the ED Na is now 126, will have to hold on the lasix daily weights Chest xray does not indicate any fluid overload trend urine output Does not appear to be in acute exacerbation Probably will need to restart the old home dose Echo taken and is awaiting read (6) COPD (chronic obstructive pulmonary disease): Code(s): J44.9 - Chronic obstructive pulmonary disease, unspecified Status: Acute Assessment and Plan: Continue neb treatments Sputum culture ordered PNA noted on chest xray Could be a slight exacerbation mixed with the PNA consider steroids, however, not on any oxygen Order abg since he is still tachypnic and short of breath (7) Lung cancer: Code(s): C34.90 - Malignant neoplasm of unspecified part of unspecified bronchus or lung Status: Acute Assessment and Plan: Known Hx squamous cell carcinoma of the right lower lobe diagnosed 10/28/20 Looks like it was growing bigger in 05/25/21 up to 4CM Had a thoracentesis on 10/26/21, cytology showed no malignancy Completed treatment CTA showed shrinkage in the lung mass Looks that the mass that is noted on the chest xray could be the one that was already present (8) BPH (benign prostatic hyperplasia): Code(s): N40.0 - Benign prostatic hyperplasia without lower urinary tract symptoms Status: Acute Assessment and Plan: BPH elevated at 4.22 Complaints of dribbling and inability to start a stream Trend urine output Bladder scan PRN Consider urinary catheter Subjective Date/time seen: 03/02/22 09:15 Interval history: 03/02/22 0915 Patient was lying in bed comfortably. Patient stated that he was ready to go home and thinks that he would be best if he just went home and took care of himself there. I explained to the patient that he does have a PE and that he would need blood thinners and this was not the worst. Patient stated that if her really wanted to work on something he would like me to work on increasing his appetite. Patient stated that he has been very w
--- NOTE | 2022-03-02 09:15 | P.PNIM_ITS ---
Progress Note: A&P Assessment and Plan (1) Pneumonia: Code(s): J18.9 - Pneumonia, unspecified organism Status: Acute Assessment and Plan: * Chest xray shows patchy opacities throughout the right lung likely PNA * Continue Azithromycin and ceftriaxone day 2 * WBC slightly elevated at 10.9 * Sputum culture ordered * Blood cultures pending * Consider some steroid as this could be combined with COPD * Continue home neb treatments * repeat chest xray in 2 days * CTA of the chest shows opacities and possible aspiration * ST ordered for a swallow study (2) Pulmonary embolism: Code(s): I26.99 - Other pulmonary embolism without acute cor pulmonale Status: Acute Assessment and Plan: * PE was noted to be on the left side * Heparin is started * Trend respiratory status * Will need to transition to oral anticoagulants at discharge (3) Pleural effusion: Code(s): J90 - Pleural effusion, not elsewhere classified Status: Acute Assessment and Plan: * CTA showed right pleural effusion possibly loculated * Thoracentesis has been ordered * Pulmonology has been referred to and agrees with current plan * Diagnostic studies pending * Could be secondary to infection or malignancy * Continue to follow (4) Hyponatremia: Code(s): E87.1 - Hypo-osmolality and hyponatremia Status: Acute Assessment and Plan: * Slight hyponatremia noted at 126 * Did get that one dose of Lasix which appears to have been the cause of the low sodium * Urine sodium was 122 * Continue to trend sodium * IVF can be stopped * Consider nephrology if no improvment (5) CHF (congestive heart failure): Code(s): I50.9 - Heart failure, unspecified Status: Acute Assessment and Plan: * BNP elevated at 6260 * One dose of lasix given in the ED * Na is now 126, will have to hold on the lasix * daily weights * Chest xray does not indicate any fluid overload * trend urine output * Does not appear to be in acute exacerbation * Probably will need to restart the old home dose * Echo taken and is awaiting read (6) COPD (chronic obstructive pulmonary disease): Code(s): J44.9 - Chronic obstructive pulmonary disease, unspecified Status: Acute Assessment and Plan: * Continue neb treatments * Sputum culture ordered * PNA noted on chest xray * Could be a slight exacerbation mixed with the PNA * consider steroids, however, not on any oxygen * Order abg since he is still tachypnic and short of breath (7) Lung cancer: Code(s): C34.90 - Malignant neoplasm of unspecified part of unspecified bronchus or lung Status: Acute Assessment and Plan: * Known Hx squamous cell carcinoma of the right lower lobe diagnosed 10/28/20 * Looks like it was growing bigger in 05/25/21 up to 4CM * Had a thoracentesis on 10/26/21, cytology showed no malignancy * Completed treatment * CTA showed shrinkage in the lung mass * Looks that the mass that is noted on the chest xray could be the one that was already present (8) BPH (benign prostatic hyperplasia): Code(s): N40.0 - Benign prostatic hyperplasia without lower urinary tract symptoms Status: Acute Assessment and Plan: * BPH elevated at 4.22 * Complaints of dribbling and inability to start a stream * Trend urine output * Bl
[2022-03-02] MEDS: HEPARIN SODIUM 5,000 UNITS/ML VIAL 3000 UNITS IV PUSH (09:18)
[2022-03-02 11:19] LABS: Amylase 59 U/L (30-110); Glucose 117 mg/dL (65-110); Lactate Dehydrogenase 298 U/L (313-618); Triglycerides 57 mg/dL (<150)
[2022-03-02 11:20] LABS: INR 1.2; Prothrombin Time 14.7 Seconds (11.1-14.7)
--- NOTE | 2022-03-02 11:28 | PCSTNOTE ---
Modified Barium Swallow ordered however it cannot be completed until tomorrow due to scheduling conflicts with Radiology secondary to thoracentesis procedure.
--- NOTE | 2022-03-02 13:30 | PCNSR ---
On 03/02/22, the student, Lex Burrell, provided care and completed [facility] documentation on this patient. I have reviewed the student's documentation and agree with the findings.
[2022-03-02] MEDS: MEGESTROL ACETATE (*CHEMO) 40 MG TABLET PO ×3 (13:40→20:28)
--- NOTE | 2022-03-02 14:59 | PCPTNOTE ---
Attempted PT evaluation, Patient refused stating I'm too tired right now. Patient encouraged to participate, but refused. RN aware. Will Follow.
[2022-03-02] MEDS: ACETAMINOPHEN 325 MG TABLET 650 MG PO (16:03)
[2022-03-02] MEDS: allopurinoL 100 MG TABLET PO (17:40)
[2022-03-02] MEDS: PANTOPRAZOLE 40 MG TABLET PO (17:40)
[2022-03-02] MEDS: DOCUSATE SODIUM 100 MG CAPSULE PO (17:41)
[2022-03-02 19:11] LABS: Partial Thromboplastin Time 119.2 SECONDS (22.3-36.8)
[2022-03-02] MEDS: HEPARIN SOD/D5W 100 UNITS/ML 25,000 UNITS/250 ML BAG 12 UNITS IV CONT (19:36)
[2022-03-02 20:00] LABS: Mucus Urine Rare /lpf
[2022-03-02 20:14] LABS: Add Urine Microscopic? YES; Appearance Urine Clear (Clear); Bilirubin Urine 1+ (Negative); Blood Urine 1+ (Negative); Color Urine Yellow (Yellow); Glucose Urine UA Negative (Negative); Ketones Urine Negative (Negative); Leukocyte Esterase Ur Negative LEU/UL (Negative); Nitrate Urine Negative (Negative); Protein Urine 1+ mg/dL (Negative); Specific Grav Ur 1.015 (1.001-1.035); pH Urine 6.5 (5.0-9.0)
[2022-03-02] MEDS: MELATONIN 3 MG TABLET PO ×2 (20:28→20:30)
[2022-03-03] VITALS (11 sets, daily range): BP systolic 84–145; BP diastolic 61–109; PULSE 82–107; RESP 15–18; TEMP 36.2–37; O2SAT 92–98
[2022-03-03 04:16] LABS: Osmolality, Urine 305 mOsm/kg (50-1200)
[2022-03-03 06:23] LABS: Basophils Percent Auto 0.1 % (0.2-1.2); Eosinophils Absolute Auto 0.1 K/mm3 (0-0.3); Eosinophils Percent Auto 0.8 % (0-4.4); Hematocrit 37.1 % (42.0-52.0); Hemoglobin 12.1 g/dL (14.0-18.0); Immature Granulocyte Absolute 0.09 K/mm3 (0.00-0.031); Immature Granulocyte Percent A 1.1 % (0-0.5); Lymphocytes Absolute Auto 0.61 K/mm3 (0.9-3.2); Lymphocytes Percent Auto 7.2 % (18.3-44.2); Mean Corpuscular HGB Conc 32.6 g/dl (32-36); Mean Corpuscular Hemoglobin 32.5 pg (26-34); Mean Corpuscular Volume 99.7 fl (80-100); Mean Platelet Volume 9.2 fl (7.4-10.4); Monocytes Percent Auto 11.3 % (2.6-8.5); Neutrophils Absolute Auto 6.8 K/mm3 (1.3-6.7); Neutrophils Percent Auto 79.5 % (45.5-73.1); Platelet Count Result 243 k/mm3 (150-375); Red Blood Count 3.72 M/mm3 (4.6-6.20); Red Cell Distribution Width 12.5 % (11.5-14.5); White Blood Count 8.5 K/mm3 (4.5-10.0)
[2022-03-03 06:34] LABS: Partial Thromboplastin Time 33.2 SECONDS (22.3-36.8)
[2022-03-03 06:38] LABS: Alanine Aminotransferase 20 U/L (6-50); Albumin Level 3.3 g/dL (3.5-5.1); Alkaline Phosphatase 119 U/L (38-126); Anion Gap 5 mmol/L (8-16); Aspartate Amino Transferase 34 U/L (17-59); Bilirubin,Total 1.1 mg/dL (0.2-1.3); Blood Urea Nitrogen 21 mg/dL (9-20); Calcium 8.4 mg/dL (8.4-10.2); Carbon Dioxide 27 mmol/L (22-30); Chloride 92 mmol/L (98-107); Estimated CRCL calculation 58 ml/min; Estimated Glomerular Filt Rate > 60; Glucose 85 mg/dL (65-110); Magnesium 1.7 mg/dL (1.6-2.3); Sodium 124 mmol/L (137-145)
--- NOTE | 2022-03-03 07:57 | PCSTNOTE ---
MBS on hold 03/03 due to having thoracentesis procedure today; must be NPO prior to procedure and remain NPO for at least two hours after the procedure. Will attempt in the morning of 03/04.
[2022-03-03] MEDS: IPRATROPIUM BR 0.02% INH SOLN 0.5 MG/2.5 ML VIAL INHALATION ×3 (08:24→21:03)
[2022-03-03] MEDS: ALBUTEROL SULFATE NEB 2.5 MG/3 ML INH INHALATION ×3 (08:24→21:03)
--- NOTE | 2022-03-03 08:45 | PCPTNOTE ---
Attempted PT eval. Patient refused stating he walked by himself already this morning and he is weak from not having anything to eat. Patient also reporting he will be discharging after his procedure today. RN aware. Will Follow.
[2022-03-03] MEDS: DOCUSATE SODIUM 100 MG CAPSULE PO ×2 (09:00→18:13)
[2022-03-03] MEDS: MEGESTROL ACETATE (*CHEMO) 40 MG TABLET PO ×4 (09:00→20:19)
--- NOTE | 2022-03-03 12:05 | PC.NURSE ---
To Xray via stretcher.
--- NOTE | 2022-03-03 12:49 | PCRCNOTE ---
1200 neb tx not give due to pt being in procedure.
--- NOTE | 2022-03-03 13:00 | PC.NURSE ---
Back from xray via stretcher.
[2022-03-03] MEDS: TAMSULOSIN HCL 0.4 MG CAPSULE PO (13:12)
--- NOTE | 2022-03-03 14:15 | P.PNIM_ITS ---
Progress Note: A&P Assessment and Plan (1) Pneumonia: Code(s): J18.9 - Pneumonia, unspecified organism Status: Acute Assessment and Plan: * Chest xray shows patchy opacities throughout the right lung likely PNA * Continue Azithromycin and ceftriaxone day 3 * WBC better at 8.5 * Sputum culture ordered * Blood cultures NGTD * Continue home neb treatments * repeat chest xray unchanged pulmonary opacities (03/02/22) * CTA of the chest shows opacities and possible aspiration * ST ordered for a swallow study (2) Pulmonary embolism: Code(s): I26.99 - Other pulmonary embolism without acute cor pulmonale Status: Acute Assessment and Plan: * PE was noted to be on the left side * Heparin is started * Trend respiratory status * Will need to transition to oral anticoagulants at discharge (3) Pleural effusion: Code(s): J90 - Pleural effusion, not elsewhere classified Status: Acute Assessment and Plan: * CTA showed right pleural effusion possibly loculated * Thoracentesis 1L of clear yellow fluid removed * Pulmonology has been referred to and agrees with current plan * Diagnostic studies pending * Could be secondary to infection or malignancy * Continue to follow (4) Hyponatremia: Code(s): E87.1 - Hypo-osmolality and hyponatremia Status: Acute Assessment and Plan: * Slight hyponatremia noted at 124 * Did get that one dose of Lasix which appears to have been the cause of the low sodium * Urine sodium was 122 * Continue to trend sodium * IVF can be stopped * Consulted Nephrology for further recommendations (5) CHF (congestive heart failure): Code(s): I50.9 - Heart failure, unspecified Status: Acute Assessment and Plan: * BNP elevated at 6260 * One dose of lasix given in the ED * Na is now 126, will have to hold on the lasix * daily weights * Chest xray does not indicate any fluid overload * trend urine output * Does not appear to be in acute exacerbation * Probably will need to restart the old home dose * Echo EF of 60 65% with normal diastolic function however there is a right ventricular systolic function that is reduced and severe aortic valve stenosis (6) COPD (chronic obstructive pulmonary disease): Code(s): J44.9 - Chronic obstructive pulmonary disease, unspecified Status: Acute Assessment and Plan: * Continue neb treatments * Sputum culture ordered * PNA noted on chest xray * Could be a slight exacerbation mixed with the PNA * Order abg since he is still tachypnic and short of breath (7) Lung cancer: Code(s): C34.90 - Malignant neoplasm of unspecified part of unspecified bronchus or lung Status: Acute Assessment and Plan: * Known Hx squamous cell carcinoma of the right lower lobe diagnosed 10/28/20 * Looks like it was growing bigger in 05/25/21 up to 4CM * Had a thoracentesis on 10/26/21, cytology showed no malignancy * Completed treatment * CTA showed shrinkage in the lung mass * Looks that the mass that is noted on the chest xray could be the one that was already present (8) BPH (benign prostatic hyperplasia): Code(s): N40.0 - Benign prostatic hyperplasia without lower urinary tract symptoms Status: Acute Assessment and Plan: * BPH elevated at 4.22 * Complaints of dribbling and inability to sta
--- NOTE | 2022-03-03 14:15 | PM.IMPN ---
Progress Note: A&P Assessment and Plan (1) Pneumonia: Code(s): J18.9 - Pneumonia, unspecified organism Status: Acute Assessment and Plan: Chest xray shows patchy opacities throughout the right lung likely PNA Continue Azithromycin and ceftriaxone day 3 WBC better at 8.5 Sputum culture ordered Blood cultures NGTD Continue home neb treatments repeat chest xray unchanged pulmonary opacities (03/02/22) CTA of the chest shows opacities and possible aspiration ST ordered for a swallow study (2) Pulmonary embolism: Code(s): I26.99 - Other pulmonary embolism without acute cor pulmonale Status: Acute Assessment and Plan: PE was noted to be on the left side Heparin is started Trend respiratory status Will need to transition to oral anticoagulants at discharge (3) Pleural effusion: Code(s): J90 - Pleural effusion, not elsewhere classified Status: Acute Assessment and Plan: CTA showed right pleural effusion possibly loculated Thoracentesis 1L of clear yellow fluid removed Pulmonology has been referred to and agrees with current plan Diagnostic studies pending Could be secondary to infection or malignancy Continue to follow (4) Hyponatremia: Code(s): E87.1 - Hypo-osmolality and hyponatremia Status: Acute Assessment and Plan: Slight hyponatremia noted at 124 Did get that one dose of Lasix which appears to have been the cause of the low sodium Urine sodium was 122 Continue to trend sodium IVF can be stopped Consulted Nephrology for further recommendations (5) CHF (congestive heart failure): Code(s): I50.9 - Heart failure, unspecified Status: Acute Assessment and Plan: BNP elevated at 6260 One dose of lasix given in the ED Na is now 126, will have to hold on the lasix daily weights Chest xray does not indicate any fluid overload trend urine output Does not appear to be in acute exacerbation Probably will need to restart the old home dose Echo EF of 60 65% with normal diastolic function however there is a right ventricular systolic function that is reduced and severe aortic valve stenosis (6) COPD (chronic obstructive pulmonary disease): Code(s): J44.9 - Chronic obstructive pulmonary disease, unspecified Status: Acute Assessment and Plan: Continue neb treatments Sputum culture ordered PNA noted on chest xray Could be a slight exacerbation mixed with the PNA Order abg since he is still tachypnic and short of breath (7) Lung cancer: Code(s): C34.90 - Malignant neoplasm of unspecified part of unspecified bronchus or lung Status: Acute Assessment and Plan: Known Hx squamous cell carcinoma of the right lower lobe diagnosed 10/28/20 Looks like it was growing bigger in 05/25/21 up to 4CM Had a thoracentesis on 10/26/21, cytology showed no malignancy Completed treatment CTA showed shrinkage in the lung mass Looks that the mass that is noted on the chest xray could be the one that was already present (8) BPH (benign prostatic hyperplasia): Code(s): N40.0 - Benign prostatic hyperplasia without lower urinary tract symptoms Status: Acute Assessment and Plan: BPH elevated at 4.22 Complaints of dribbling and inability to start a stream Trend urine output Bladder scan showed 800ml left after void Urinary catheter installed Flomax added Will probably need to follow up with urology upon DC Time Spent With Patient Time with patient: Greater than 35 minutes Subjective Date/time seen: 03/03/22 141 Interval history: 03/03/221414 Patient just returned from his thoracentesis which she stated went well. Patient stated that the fluid that was pulled out was clear and yellow looks like urine and was about a L. He stated he does feel lot better he denie
--- NOTE | 2022-03-03 14:55 | PM.CNNEP ---
Assessment and Plan Assessment and plan (1) Hyponatremia: Code(s): E87.1 - Hypo-osmolality and hyponatremia Status: Acute Assessment and Plan: acute on chronic running around 127 - 133 in the last 6 - 7 months multiple risk factors noted: lung cancer/lung mass COPD use of PPI pulmonary emboli diuretic use at baseline on admission - down to 124 by AM labs today check urine electrolytes, TSH, cortisol, SPEP, UPEP, urine/serum osmolality (2) Pneumonia: Code(s): J18.9 - Pneumonia, unspecified organism Status: Acute Assessment and Plan: admission imaging suggestive follow culture data on antibiotics continue supportive therapy (3) CHF (congestive heart failure): Code(s): I50.9 - Heart failure, unspecified Status: Acute Assessment and Plan: CXR negative for pulmonary vascular congestion however, elevated BNP noted appears compensated at this time follow I/Os and daily weights (4) COPD (chronic obstructive pulmonary disease): Code(s): J44.9 - Chronic obstructive pulmonary disease, unspecified Status: Acute Assessment and Plan: suspect a degree of exacerbation due to PNA continue supportive therapy nebulizer treatments and supplemental oxygen as needed (5) Pulmonary embolism: Code(s): I26.99 - Other pulmonary embolism without acute cor pulmonale Status: Acute Assessment and Plan: as noted by recent CTA of lungs on anticoagulation Will continue to follow. History of Present Illness Reason for Consult Consult date: 03/03/22 Reason for consult: hyponatremia Chief Complaint Chief complaint: Pneumonia/Lung Mass/CHF History of Present Illness Narrative: The patient is an 86-year-old male with a past medical history as outlined below who presented to [facility] Emergency room a few days ago with complaints of shortness of breath. Apparently, on the evening prior to admission as well as the day of admission, his respiratory status /shortness of breath declined quite significantly. Conservative therapy in effort to help his breathing including nebulizer treatments did not seem to help whatsoever. Associated symptoms included a productive cough of yellow /green sputum but he does not report that his cough was not any worse than usual. He reported no chest pain, nausea. vomiting, diarrhea, or constipation but he does report an increase in weakness and difficulty ambulating like he has in the past. Other associated findings include a decrease in appetite and weight loss. Given these constellation of symptoms in conjunction with his known complex medical history, he presented to the emergency room for further evaluation. Workup and evaluation emergency room demonstrated the patient be hemodynamically stable and routine blood test demonstrated a mildly elevated white blood cell count and normal renal function with mild hyponatremia noted. His chest x-ray was highly suggestive of pneumonia and what appeared to be a mass consistent with his known history of lung cancer. Appropriate cultures were obtained and he was started on broad-spectrum IV antibiotic therapy as well as IV fluids with subsequent admission to the hospital Since his admission, he has had a CT scan which demonstrated multiple pulmonary emboli and has since been started on anticoagulation and his sodium level has actually worsened with IV fluid administration as well. He just recently had a thoracentesis in effort to optimize his respiratory status. Renal consultation was requested due to his hyponatremia. From review of his records, it would seem the patient has some degree of chronic hyponatremia with his sodium level running around 127-133 millimoles per L in the last 6-7 months. As noted on admission, he was at baseline with a sodium level 131 but this has acutely worsened to a sodium level of 124 by a.m. labs. As far as I
--- NOTE | 2022-03-03 15:06 | PCOTNOTE ---
Patient not seen for OT this date. Will continue per plan of care.
[2022-03-03] MEDS: PANTOPRAZOLE 40 MG TABLET PO (18:13)
[2022-03-03] MEDS: allopurinoL 100 MG TABLET PO (18:13)
[2022-03-03] MEDS: RIVAROXABAN 15 MG TABLET PO (18:14)
[2022-03-03] MEDS: MELATONIN 3 MG TABLET PO (20:19)
[2022-03-04 04:45] LABS: Creatinine Urine 234.7 mg/dL; Total Protein Urine Random 17 mg/dL; Ur Ttl Prot Creatinine Ratio 0.07 mg/mg (0-0.20)
[2022-03-04 04:50] LABS: Sodium Urine Random 37 meq/L
[2022-03-04 05:08] VITALS: BP 103/61; PULSE 100; RESP 18; TEMP 36.6; O2SAT 95
[2022-03-04 07:18] LABS: Basophils Percent Auto 0.2 % (0.2-1.2); Eosinophils Percent Auto 0.3 % (0-4.4); Hematocrit 35.8 % (42.0-52.0); Hemoglobin 11.8 g/dL (14.0-18.0); Immature Granulocyte Absolute 0.08 K/mm3 (0.00-0.031); Immature Granulocyte Percent A 0.8 % (0-0.5); Lymphocytes Absolute Auto 0.55 K/mm3 (0.9-3.2); Lymphocytes Percent Auto 5.3 % (18.3-44.2); Mean Corpuscular Hemoglobin 32.9 pg (26-34); Mean Corpuscular Volume 99.7 fl (80-100); Mean Platelet Volume 9.2 fl (7.4-10.4); Monocytes Absolute Auto 1.2 K/mm3 (0.1-0.6); Monocytes Percent Auto 11.1 % (2.6-8.5); Neutrophils Absolute Auto 8.6 K/mm3 (1.3-6.7); Neutrophils Percent Auto 82.3 % (45.5-73.1); Platelet Count Result 247 k/mm3 (150-375); Red Blood Count 3.59 M/mm3 (4.6-6.20); Red Cell Distribution Width 12.3 % (11.5-14.5); White Blood Count 10.4 K/mm3 (4.5-10.0)
[2022-03-04 07:26] LABS: Alanine Aminotransferase 18 U/L (6-50); Albumin Level 3.1 g/dL (3.5-5.1); Alkaline Phosphatase 128 U/L (38-126); Anion Gap 7 mmol/L (8-16); Aspartate Amino Transferase 24 U/L (17-59); Bilirubin,Total 1.2 mg/dL (0.2-1.3); Blood Urea Nitrogen 19 mg/dL (9-20); Calcium 8.5 mg/dL (8.4-10.2); Carbon Dioxide 30 mmol/L (22-30); Chloride 89 mmol/L (98-107); Estimated CRCL calculation 51 ml/min; Estimated Glomerular Filt Rate > 60; Glucose 85 mg/dL (65-110); Magnesium 1.4 mg/dL (1.6-2.3); Potassium 3.2 mmol/L (3.4-5.0); Sodium 126 mmol/L (137-145)
[2022-03-04] MEDS: DOCUSATE SODIUM 100 MG CAPSULE PO ×2 (08:42→17:09)
[2022-03-04] MEDS: RIVAROXABAN 15 MG TABLET PO ×2 (08:43→17:09)
[2022-03-04] MEDS: MEGESTROL ACETATE (*CHEMO) 40 MG TABLET PO ×3 (08:43→17:09)
[2022-03-04] MEDS: TAMSULOSIN HCL 0.4 MG CAPSULE PO (08:43)
[2022-03-04] MEDS: POTASSIUM CHLORIDE 20 MEQ TABLET 40 MEQ PO (08:45)
[2022-03-04] MEDS: MAGNESIUM SULF 4 GM/WATER100ML 4 GM/100 ML BAG IVPB (08:45)
--- NOTE | 2022-03-04 10:15 | P.DS_ITS ---
DS: Admitting Diagnosis Discharge Date 03/04/22 1015 Admitting Diagnosis pneumonia/pleural effusion / BPH /hyponatremia DS: Discharge Diagnosis Discharge Diagnosis (1) Pneumonia: Code(s): J18.9 - Pneumonia, unspecified organism Status: Acute Assessment and Plan: * Chest xray shows patchy opacities throughout the right lung likely PNA * Continue Azithromycin and ceftriaxone day 3 * WBC better at 8.5 * Sputum culture ordered * Blood cultures NGTD * Continue home neb treatments * repeat chest xray unchanged pulmonary opacities (03/02/22) * CTA of the chest shows opacities and possible aspiration * ST ordered for a swallow study (2) Pulmonary embolism: Code(s): I26.99 - Other pulmonary embolism without acute cor pulmonale Status: Acute Assessment and Plan: * PE was noted to be on the left side * Heparin is started * Trend respiratory status * Will need to transition to oral anticoagulants at discharge (3) Pleural effusion: Code(s): J90 - Pleural effusion, not elsewhere classified Status: Acute Assessment and Plan: * CTA showed right pleural effusion possibly loculated * Thoracentesis 1L of clear yellow fluid removed * Pulmonology has been referred to and agrees with current plan * Diagnostic studies pending * Could be secondary to infection or malignancy * Continue to follow (4) Hyponatremia: Code(s): E87.1 - Hypo-osmolality and hyponatremia Status: Acute Assessment and Plan: * Slight hyponatremia noted at 124 * Did get that one dose of Lasix which appears to have been the cause of the low sodium * Urine sodium was 122 * Continue to trend sodium * IVF can be stopped * Consulted Nephrology for further recommendations (5) CHF (congestive heart failure): Code(s): I50.9 - Heart failure, unspecified Status: Acute Assessment and Plan: * BNP elevated at 6260 * One dose of lasix given in the ED * Na is now 126, will have to hold on the lasix * daily weights * Chest xray does not indicate any fluid overload * trend urine output * Does not appear to be in acute exacerbation * Probably will need to restart the old home dose * Echo EF of 60 65% with normal diastolic function however there is a right ventricular systolic function that is reduced and severe aortic valve stenosis (6) COPD (chronic obstructive pulmonary disease): Code(s): J44.9 - Chronic obstructive pulmonary disease, unspecified Status: Acute Assessment and Plan: * Continue neb treatments * Sputum culture ordered * PNA noted on chest xray * Could be a slight exacerbation mixed with the PNA * Order abg since he is still tachypnic and short of breath (7) Lung cancer: Code(s): C34.90 - Malignant neoplasm of unspecified part of unspecified bronchus or lung Status: Acute Assessment and Plan: * Known Hx squamous cell carcinoma of the right lower lobe diagnosed 10/28/20 * Looks like it was growing bigger in 05/25/21 up to 4CM * Had a thoracentesis on 10/26/21, cytology showed no malignancy * Completed treatment * CTA showed shrinkage in the lung mass * Looks that the mass that is noted on the chest xray could be the one that was already present (8) BPH (benign prostatic hyperplasia): Code(s): N40.0 - Benign prostatic hyperplasia without lower urin
--- NOTE | 2022-03-04 10:15 | PM.DS ---
DS: Admitting Diagnosis Discharge Date 03/04/22 1015 Admitting Diagnosis pneumonia/pleural effusion / BPH /hyponatremia DS: Discharge Diagnosis Discharge Diagnosis (1) Pneumonia: Code(s): J18.9 - Pneumonia, unspecified organism Status: Acute Assessment and Plan: Chest xray shows patchy opacities throughout the right lung likely PNA Continue Azithromycin and ceftriaxone day 3 WBC better at 8.5 Sputum culture ordered Blood cultures NGTD Continue home neb treatments repeat chest xray unchanged pulmonary opacities (03/02/22) CTA of the chest shows opacities and possible aspiration ST ordered for a swallow study (2) Pulmonary embolism: Code(s): I26.99 - Other pulmonary embolism without acute cor pulmonale Status: Acute Assessment and Plan: PE was noted to be on the left side Heparin is started Trend respiratory status Will need to transition to oral anticoagulants at discharge (3) Pleural effusion: Code(s): J90 - Pleural effusion, not elsewhere classified Status: Acute Assessment and Plan: CTA showed right pleural effusion possibly loculated Thoracentesis 1L of clear yellow fluid removed Pulmonology has been referred to and agrees with current plan Diagnostic studies pending Could be secondary to infection or malignancy Continue to follow (4) Hyponatremia: Code(s): E87.1 - Hypo-osmolality and hyponatremia Status: Acute Assessment and Plan: Slight hyponatremia noted at 124 Did get that one dose of Lasix which appears to have been the cause of the low sodium Urine sodium was 122 Continue to trend sodium IVF can be stopped Consulted Nephrology for further recommendations (5) CHF (congestive heart failure): Code(s): I50.9 - Heart failure, unspecified Status: Acute Assessment and Plan: BNP elevated at 6260 One dose of lasix given in the ED Na is now 126, will have to hold on the lasix daily weights Chest xray does not indicate any fluid overload trend urine output Does not appear to be in acute exacerbation Probably will need to restart the old home dose Echo EF of 60 65% with normal diastolic function however there is a right ventricular systolic function that is reduced and severe aortic valve stenosis (6) COPD (chronic obstructive pulmonary disease): Code(s): J44.9 - Chronic obstructive pulmonary disease, unspecified Status: Acute Assessment and Plan: Continue neb treatments Sputum culture ordered PNA noted on chest xray Could be a slight exacerbation mixed with the PNA Order abg since he is still tachypnic and short of breath (7) Lung cancer: Code(s): C34.90 - Malignant neoplasm of unspecified part of unspecified bronchus or lung Status: Acute Assessment and Plan: Known Hx squamous cell carcinoma of the right lower lobe diagnosed 10/28/20 Looks like it was growing bigger in 05/25/21 up to 4CM Had a thoracentesis on 10/26/21, cytology showed no malignancy Completed treatment CTA showed shrinkage in the lung mass Looks that the mass that is noted on the chest xray could be the one that was already present (8) BPH (benign prostatic hyperplasia): Code(s): N40.0 - Benign prostatic hyperplasia without lower urinary tract symptoms Status: Acute Assessment and Plan: BPH elevated at 4.22 Complaints of dribbling and inability to start a stream Trend urine output Bladder scan showed 800ml left after void Urinary catheter installed Flomax added Will probably need to follow up with urology upon DC DS: Summary Hospital Course Hospital Course: patient is an 86-year-old male with a past medical history of COPD, lung cancer, GERD, gout, hyperlipidemia who presented to the ED with shortness of breath. Patient had been doing nebs treatments
--- NOTE | 2022-03-04 11:30 | PCPTNOTE ---
Attempted PT evaluation. Patient refused stating he got up this morning and is too tired to participate at this time. Patient has refused physical therapy 3 days in a row and will be discharged at this time. RN aware. Orders DC.
--- NOTE | 2022-03-04 12:26 | PM.PNNEP ---
Progress Note: A&P Assessment and Plan (1) Hyponatremia: Code(s): E87.1 - Hypo-osmolality and hyponatremia Status: Acute Assessment and Plan: acute on chronic running around 127 - 133 in the last 6 - 7 months multiple risk factors noted: lung cancer/lung mass COPD use of PPI pulmonary emboli diuretic use at baseline on admission; up to 126 bu AM labs evaluation to date: TSH and cortisol okay urine electrolytes suggest pre-renal azotemia SPEP/UPEP and serum/urine osmolality pending (2) Pneumonia: Code(s): J18.9 - Pneumonia, unspecified organism Status: Acute Assessment and Plan: admission imaging suggestive follow culture data on antibiotics continue supportive therapy (3) CHF (congestive heart failure): Code(s): I50.9 - Heart failure, unspecified Status: Acute Assessment and Plan: CXR negative for pulmonary vascular congestion however, elevated BNP noted appears compensated at this time follow I/Os and daily weights (4) COPD (chronic obstructive pulmonary disease): Code(s): J44.9 - Chronic obstructive pulmonary disease, unspecified Status: Acute Assessment and Plan: suspect a degree of exacerbation due to PNA continue supportive therapy nebulizer treatments and supplemental oxygen as needed (5) Pulmonary embolism: Code(s): I26.99 - Other pulmonary embolism without acute cor pulmonale Status: Acute Assessment and Plan: as noted by recent CTA of lungs on anticoagulation Will continue to follow. Subjective Date/time seen: 03/04/22 12:26 Feels quite well at the the time of my visit; sodium has improved some by AM labs; no apparent distress noted; not new issues or problem voiced currently; no events overnight or earlier this AM; quite anxious/adamant for discharge today. Exam Narrative: General: elderly male in NAD Heart: normal S1 and S2; IRRR no rub Lungs: coarse and decreased at bases Abdomen: soft, nontender, nondistended, positive bowel sounds Extremities: no cyanosis or clubbing; no edema Skin: warm and dry Objective Data Vital Signs Vital Signs: Vital Signs Temp Pulse Resp BP Pulse Ox O2 Del Method 03/04/22 08:40 Room Air 03/04/22 05:08 36.6 C 100 18 103/61 95 03/03/22 21:15 88 18 03/03/22 21:07 82 18 03/03/22 20:53 37.0 C 100 16 84/61 L 94 03/03/22 17:18 88 18 03/03/22 17:09 85 18 Intake/Output Intake/Output: Intake & Output 03/01/22 03/02/22 03/03/22 03/04/22 23:59 23:59 23:59 23:59 Intake Total 765 1530 900 700 Output Total 350 2925 200 Balance 765 1180 -2025 500 Meds/Results Medications: Active Medications Generic Name Dose Route Start Last Admin Trade Name Freq PRN Reason Stop Dose Admin Acetaminophen 650 mg 03/01/22 11:39 03/02/22 16:03 Acetaminophen 325 Mg Tablet PO 650 mg Q4H PRN Administration Mild Pain (1-3) or Fever Hydrocodone Bitart/Acetaminophen 1 tab 03/01/22 15:14 03/02/22 01:09 Hydrocodone/Acetaminophen (*Crx) 5-325 Mg Tablet PO 1 tab Q4H PRN Administration Pain Rated 4-6 Albuterol 2.5 mg 03/01/22 20:00 03/04/22 15:12 Albuterol Sulfate Neb 2.5 Mg/3 Ml Inh INHALATION Not Given QIDRT BALAJI Allopurinol 100 mg 03/02/22 17:00 03/03/22 18:13 Allopurinol 100 Mg Tablet PO 100 mg 1700 BALAJI Administration Docusate Sodium 100 mg 03/01/22 17:00 03/04/22 08:42 Docusate Sodium 100 Mg Capsule PO 100 mg BID BALAJI Administration Ceftriaxone Sodium/Dextrose 1 gm in 50 mls @ 100 mls/hr 03/02/22 12:00 03/04/22 11:32 Rocephin 1 Gm/D5w 50 Ml IVPB 100 mls/hr Q24H BALAJI Administration Azithromycin 500 mg in 250 mls @ 250 mls/hr 03/02/22 14:00 03/04/22 13:42 Zithromax IVPB 125 mls/hr Q24H BALAJI Administration Ipratropium [place] 0.5 mg 03/01/22 20:00 03/04/22 15:11 Ipratropium Br 0.02% In
--- NOTE | 2022-03-04 12:26 | P.PNNP_ITS ---
Progress Note: A&P Assessment and Plan (1) Hyponatremia: Code(s): E87.1 - Hypo-osmolality and hyponatremia Status: Acute Assessment and Plan: * acute on chronic * running around 127 - 133 in the last 6 - 7 months * multiple risk factors noted: * lung cancer/lung mass * COPD * use of PPI * pulmonary emboli * diuretic use * at baseline on admission; up to 126 bu AM labs * evaluation to date: * TSH and cortisol okay * urine electrolytes suggest pre-renal azotemia * SPEP/UPEP and serum/urine osmolality pending (2) Pneumonia: Code(s): J18.9 - Pneumonia, unspecified organism Status: Acute Assessment and Plan: * admission imaging suggestive * follow culture data * on antibiotics * continue supportive therapy (3) CHF (congestive heart failure): Code(s): I50.9 - Heart failure, unspecified Status: Acute Assessment and Plan: * CXR negative for pulmonary vascular congestion * however, elevated BNP noted * appears compensated at this time * follow I/Os and daily weights (4) COPD (chronic obstructive pulmonary disease): Code(s): J44.9 - Chronic obstructive pulmonary disease, unspecified Status: Acute Assessment and Plan: * suspect a degree of exacerbation due to PNA * continue supportive therapy * nebulizer treatments and supplemental oxygen as needed (5) Pulmonary embolism: Code(s): I26.99 - Other pulmonary embolism without acute cor pulmonale Status: Acute Assessment and Plan: * as noted by recent CTA of lungs * on anticoagulation Will continue to follow. Subjective Date/time seen: 03/04/22 12:26 Feels quite well at the the time of my visit; sodium has improved some by AM labs; no apparent distress noted; not new issues or problem voiced currently; no events overnight or earlier this AM; quite anxious/adamant for discharge today. Exam Narrative: General: elderly male in NAD Heart: normal S1 and S2; IRRR no rub Lungs: coarse and decreased at bases Abdomen: soft, nontender, nondistended, positive bowel sounds Extremities: no cyanosis or clubbing; no edema Skin: warm and dry Objective Data Vital Signs Vital Signs: Vital Signs Temp Pulse Resp BP Pulse Ox O2 Del Method 03/04/22 08:40 Room Air 03/04/22 05:08 36.6 C 100 18 103/61 95 03/03/22 21:15 88 18 03/03/22 21:07 82 18 03/03/22 20:53 37.0 C 100 16 84/61 L 94 03/03/22 17:18 88 18 03/03/22 17:09 85 18 Intake/Output Intake/Output: Intake & Output 03/01/22 03/02/22 03/03/22 03/04/22 23:59 23:59 23:59 23:59 Intake Total 765 1530 900 700 Output Total 350 2925 200 Balance 765 1180 -2025 500 Meds/Results Medications: Active Medications Generic Name Dose Route Start Last Admin Trade Name Freq PRN Reason Stop Dose Admin Acetaminophen 650 mg 03/01/22 11:39 03/02/22 16:03 Acetaminophen 325 Mg Tablet PO 650 mg Q4H PRN Administration Mild Pain (1-3) or Fever Hydrocodone Bitart/Acetaminophen 1 tab 03/01/22 15:14 03/02/22 01:09 Hydrocodone/Acetaminophen (*Crx) 5-325 Mg Tablet PO
[2022-03-04 14:00] VITALS: BP 104/86; PULSE 86; RESP 14; TEMP 37; O2SAT 95
--- NOTE | 2022-03-04 14:38 | PCSTNOTE ---
Please refer to the Modified Barium Swallow Evaluation in the EMR.
[2022-03-04] MEDS: IPRATROPIUM BR 0.02% INH SOLN 0.5 MG/2.5 ML VIAL INHALATION (15:11)
[2022-03-04] MEDS: ALBUTEROL SULFATE NEB 2.5 MG/0.5 ML INH (15:11)
[2022-03-04 15:14] VITALS: PULSE 90; RESP 20; O2SAT 95
[2022-03-04 15:20] VITALS: PULSE 84; RESP 20
[2022-03-04] MEDS: PANTOPRAZOLE 40 MG TABLET PO (17:09)
[2022-03-04] MEDS: allopurinoL 100 MG TABLET PO (17:13)
[2022-03-07 14:15] LABS: Glucose Pleural Fluid 75 mg/dL; LDH Pleural Fluid 93 U/L; Total Protein Pleural Fluid 3.6 g/dL
[2022-03-07 16:08] LABS: Chloride Rand Ur <20 mmol/L (32-290); Creatinine Random Urine 201 mg/dL (20-320)
[2022-03-07 23:55] LABS: Albumin 2.7 g/dL (3.8-4.8); Alpha 1 Globulin 0.5 g/dL (0.2-0.3); Alpha 2 Globulin 0.8 g/dL (0.5-0.9); Beta 1 Globulin 0.3 g/dL (0.4-0.6); Gamma Globulin 1.4 g/dL (0.8-1.7); Protein, Total 6.2 g/dL (6.1-8.1)
[2022-03-08 12:59] LABS: Albumin Pleural Fluid 1.9 g/dL
[2022-03-08 14:47] LABS: Total Protein/Creatinine Ratio 208 mg/g creat (22-128)
[2022-03-09 01:59] LABS: Osmolality, Urine 754 mOsm/kg (50-1200)
[2022-03-09 13:18] LABS: Amylase, Pleural Fluid 20 U/L
== END 2022-03-04 17:20 | disposition home health service (06) | DRG 175 ==
LOC: ANHED 09:20 → ANH3MEDSUR 15:28
PROVIDERS: Internal Medicine Nephrology; Nurse Practitioner Adult Health; Admitting Provider Student in an Organized Health Care Education/Training Program; Emergency Provider Emergency Medicine; PCP Family Medicine; Visit Provider Nurse Practitioner
DX: I26.99 Other pulmonary embolism without acute cor pulmonale (principal); J18.9 Pneumonia, unspecified organism; C34.90 Malignant neoplasm of unspecified part of unspecified bronchus or lung; E87.1 Hypo-osmolality and hyponatremia; J90 Pleural effusion, not elsewhere classified; J44.0 Chronic obstructive pulmonary disease with (acute) lower respiratory infection; I50.9 Heart failure, unspecified; N40.0 Benign prostatic hyperplasia without lower urinary tract symptoms; Z87.891 Personal history of nicotine dependence; K21.9 Gastro-esophageal reflux disease without esophagitis; E78.00 Pure hypercholesterolemia, unspecified; Z80.9 Family history of malignant neoplasm, unspecified; Z20.822 Contact with and (suspected) exposure to COVID-19; Z79.899 Other long term (current) drug therapy
CPT/HCPCS: 32555; 36415; 36600; 71046; 71275; 80053; 81001; 81050; 82042; 82150; 82375; 82436; 82533; 82570; 82805; 82945; 82947; 83050; 83615; 83735; 83880; 83930; 83935; 84155; 84156; 84157; 84165; 84166; 84300; 84311; 84443; 84478; 84484; 84540; 85025; 85380; 85610; 85730; 87040; 92611; 93005; 93970; 94640; 96365; 96366; 96367; 96375; 97165; 97535; 99285; A9270; C8929; C9803; G0378; J0456; J0696; J1644; J1940; J3475; Q9967; U0003; U0005

== ENCOUNTER 2022-03-14 06:41 | Emergency (ER) | payer MEDICARE, SELFPAY ==
[2022-03-14 06:46] VITALS: BP 113/62; PULSE 90; RESP 17; TEMP 36.1; O2SAT 95
--- NOTE | 2022-03-14 07:17 | ED.MALEGU ---
HPI - Male Genitourinary General Chief complaint: Urogenital-Male Stated complaint: Hematuria Time Seen by Provider: 03/14/22 06:49 History of Present Illness HPI Narrative: 86-year-old male presents emergency room secondary to reji hematuria through his [place] catheter. He was given large dose of Lasix to help get rid of some excess fluid approximately 9 days ago. There were concerned about his ability to urinate and put a [place] catheter in at that time. This past Tuesday, 5 days ago, he began having blood coming out of his [place]. He also was diagnosed with a pulmonary embolism and started on what sounds like Xarelto. He is to get into a urologist into the week but unable to see him and should be seeing him the first of this week. Denies any chills or fevers. No cough or congestion. No other medical problems noted at this time. Related Data Home Medications Medication Instructions Recorded Confirmed ipratropium 0.5 mg-albuterol 3 mg 3 ml inhalation QID 02/02/22 03/01/22 (2.5 mg base)/3 mL nebulization soln Allergies Allergy/AdvReac Type Severity Reaction Status Date / Time No Known Allergies Allergy Verified 03/14/22 06:49 Review of Systems Review of Systems: CONSTITUTIONAL: Denies fever, chills, or sweats. EYES: Denies visual changes, redness, or discharge. ENT: Denies rhinorrhea, congestion, sore throat, or otalgia. CARDIOVASCULAR: Denies chest pain, palpitations, or edema. RESPIRATORY: Denies cough or dyspnea. GASTROINTESTINAL: Denies abdominal pain, nausea, vomiting, or diarrhea. GENITOURINARY: Alcala catheter in place with reji hematuria SKIN: Denies rash or itching. MUSCULOSKELETAL: Denies back pain, joint pain, or myalgia. NEUROLOGIC: Denies headache, numbness, or weakness. PSYCHIATRIC: Denies anxiety or depression. [facility] Past Medical History Medical History Abdominal cramping Abnormal stool color Chronic bronchitis COPD exacerbation GERD (gastroesophageal reflux disease) Gout High cholesterol Lung cancer Surgical History Surgical History History of bilateral knee replacement 2001 History of neck surgery metal plate in neck 2007 History of surgery on arm Metal plate in arm 1998 Family History Family History Other Family history of arthritis Family history of malignant neoplasm Social History Social History Social History: Patient lives by himself. Patient wishes that his daughter Brice and son Darien to be his surrogates. Patient has 2 girls and 2 boys 1 of his sons with colon cancer. Patient was a heavy smoker for many years he isn't have any pets any wishes to be a DNR at this time Smoking packs per day: 2 Smoking cigarettes per day: 40.0 Years smoked: 50 Smoking pack-years: 100.00 Smoking status: Former smoker Tobacco type: cigarettes Alcohol intake: former Alcohol use details: Does not drink anymore, Doesn't even taste good Substance use: never Gender identity (if verbalized by the patient): Male Sexual Orientation (if Verbalized by the Patient): Straight or Heterosexual Spiritual care concerns: No Agree to blood products: Yes Exam Narrative: APPEARANCE: Well appearing, no pain or distress, well-nourished. Head normocephalic and atraumatic. EYES: PERRLA/EOMI, conjunctivae very clear. NOSE: Normal with no drainage EARS:TMS clear Wojciech Galvez, with good light reflex. THROAT: Pharynx clear, no exudate. NECK: Supple. No adenopathy, no masses. RESPIRATORY: Airway patent, respirations nonlabored. Clear to auscultation bilaterally, no rales, rhonchi, wheezing. CARDIOVASCULAR: Regular rate and rhythm without murmurs, rubs, or gallops. ABDOMINAL: Soft, nontender, nondistended, no hepatosplenomegaly Musculoskeletal: Moves a
[2022-03-14 07:37] LABS: Add Urine Microscopic? YES; Appearance Urine Turbid (Clear); Bilirubin Urine 1+ (Negative); Blood Urine 2+ (Negative); Color Urine Red (Yellow); Glucose Urine UA Negative (Negative); Ketones Urine Negative (Negative); Leukocyte Esterase Ur Negative LEU/UL (Negative); Nitrate Urine Negative (Negative); Protein Urine 3+ mg/dL (Negative); Specific Grav Ur >= 1.030 (1.001-1.035)
[2022-03-14 07:41] LABS: INR 3.6; Prothrombin Time 34.9 Seconds (11.1-14.7)
[2022-03-14 07:42] LABS: Partial Thromboplastin Time 48.7 SECONDS (22.3-36.8)
[2022-03-14 07:52] LABS: Mucus Urine Heavy /lpf; RBC Urine >75 /hpf (0-2)
[2022-03-14 07:53] LABS: Basophils Absolute Auto 0.1 K/mm3 (0.0-0.1); Basophils Percent Auto 0.6 % (0.2-1.2); Eosinophils Percent Auto 0.4 % (0-4.4); Hematocrit 37.6 % (42.0-52.0); Hemoglobin 11.9 g/dL (14.0-18.0); Immature Granulocyte Absolute 0.14 K/mm3 (0.00-0.031); Immature Granulocyte Percent A 1.7 % (0-0.5); Lymphocytes Absolute Auto 0.75 K/mm3 (0.9-3.2); Lymphocytes Percent Auto 9.1 % (18.3-44.2); Mean Corpuscular HGB Conc 31.6 g/dl (32-36); Mean Corpuscular Volume 104.2 fl (80-100); Mean Platelet Volume 9.3 fl (7.4-10.4); Monocytes Absolute Auto 0.7 K/mm3 (0.1-0.6); Monocytes Percent Auto 8.8 % (2.6-8.5); Neutrophils Absolute Auto 6.5 K/mm3 (1.3-6.7); Neutrophils Percent Auto 79.4 % (45.5-73.1); Platelet Count Result 335 k/mm3 (150-375); Red Blood Count 3.61 M/mm3 (4.6-6.20); Red Cell Distribution Width 12.8 % (11.5-14.5); White Blood Count 8.2 K/mm3 (4.5-10.0)
[2022-03-14 09:47] VITALS: BP 111/64; PULSE 80; RESP 18; O2SAT 99
== END 2022-03-14 09:42 | disposition home or self-care (01) ==
PROVIDERS: Emergency Provider Emergency Medicine; PCP Family Medicine
DX: N39.0 Urinary tract infection, site not specified (principal); R31.9 Hematuria, unspecified; T45.515A Adverse effect of anticoagulants, initial encounter; Z86.711 Personal history of pulmonary embolism; J44.9 Chronic obstructive pulmonary disease, unspecified; K21.9 Gastro-esophageal reflux disease without esophagitis; E78.00 Pure hypercholesterolemia, unspecified; M10.9 Gout, unspecified; Z96.653 Presence of artificial knee joint, bilateral; Z66 Do not resuscitate; Z87.891 Personal history of nicotine dependence
CPT/HCPCS: 36415; 81001; 85025; 85610; 85730; 87086; 99283